=== PATIENT | female | born 1995 | race Caucasian/White ===

== ENCOUNTER 2017-06-14 20:52 | Emergency (ER) | payer BC ==
[~2017-06-14] VITALS: Ht 157.5 cm; Wt 62.0 kg
[~2017-06-14 20:52] MED LIST: CIPR-255 PO
[2017-06-14 20:57] VITALS: TEMP 36.8; Ht 157.5 cm; Wt 62.0 kg
--- NOTE | 2017-06-14 21:56 | DIAGNOSTIC IMAGING REPORT ---
LEFT ANKLE 3 VIEWS CLINICAL HISTORY: Left ankle twisting injury. FINDINGS: 3 views of the left ankle are obtained. No prior studies are available for comparison at the time of dictation. The skeletal structures are well mineralized. No fracture is seen. The ankle mortise is intact. A small joint effusion is identified. Soft tissue edema is present around the ankle, greatest over the lateral malleolus. A small bone island is incidentally noted in the calcaneus. IMPRESSION: Soft tissue swelling and joint effusion with no radiographic evidence of left ankle fracture. Electronically signed by: Sidney Red M.D. 06/14/2017 9:55 PM Dictated Date/Time: 06/14/2017 9:54 PM
[2017-06-14] MEDS ORDERED: CRAN500C2 PO (22:20)
[2017-06-14] MEDS ORDERED: IUD'IUD INT UTER (22:20)
[2017-06-14] MEDS ORDERED: SPIR25TA PO (22:20)
[2017-06-14] MEDS ORDERED: IBUPROFEN 600 MG TAB PO STA (22:25)
[2017-06-14 22:41] VITALS: BP 111/89; PULSE 64; O2SAT 100
--- NOTE | 2017-06-14 23:27 | EMERGENCY ROOM VISIT NOTE ---
History First contact with patient: 21:06 Chief Complaint: ANKLE PAIN Stated Complaint: L ANKLE PAIN,SWELLING AND PAIN History of Present Illness The patient is a 21 year old female who presents to the Emergency Room with complaints of left ankle injury tonight. The patient reports stepping off of a curb and twisting her ankle. She denies any pain extending into the foot or leg. She denies paresthesias or numbness of the left foot or toes, and rates her discomfort a 6 out of 10 with ambulation. The patient denies any prior history of left ankle injuries. Review of Systems 10 system review was performed and was negative except for pertinent positives and negatives as indicated in history of present illness Past Medical/Surgical History Medical Problems: (1) UTI (urinary tract infection) Family History Patient reports no known family medical history. Social History Smoking Status: Never Smoker Marital Status: single Housing Status: lives with roommate Occupation Status: [employer] student Current/Historical Medications Scheduled Cranberry (Vaccinium Macrocarp (Cranberry), 500 MG PO DAILY Iud's (Paragard Intrauterine Displayer), 1 EA INT UTER UD Spironolactone (Aldactone), 25 MG PO DAILY Physical Exam Vital Signs Date Time Temp Pulse Resp B/P (MAP) Pulse Ox O2 Delivery O2 Flow Rate FiO2 06/14/17 22:41 64 111/89 100 06/14/17 20:57 36.8 79 18 112/81 97 Room Air Physical Exam CONSTITUTIONAL: Healthy and well nourished. Alert and oriented X 3 with positive affect. Patient does not appear in any acute distress. HEENT: Normocephalic, atraumatic. Pupils equal, round and reactive. NECK: Full active range of motion without discomfort. MUSCULOSKELETAL: Examination of the left ankle shows mild lateral edema. No open wounds or ecchymosis noted. The patient has no tenderness of the deltoid ligament, and negative anterior draw test. No focal tenderness to palpation of the dorsal midfoot, metatarsals, phalanges, calcaneus, Achilles tendon or proximal leg. Pedal pulses are intact. INTEGUMENTARY: No rash or other significant dermatologic conditions noted. NEUROLOGIC: Left foot and toes are sensory intact. Medical Decision & Procedures ER Provider Diagnostic Interpretation: My interpretation of left ankle x-rays does not show any acute fractures, dislocation or ankle mortise asymmetry. Radiologist report is as follows: LEFT ANKLE 3 VIEWS CLINICAL HISTORY: Left ankle twisting injury. FINDINGS: 3 views of the left ankle are obtained. No prior studies are available for comparison at the time of dictation. The skeletal structures are well mineralized. No fracture is seen. The ankle mortise is intact. A small joint effusion is identified. Soft tissue edema is present around the ankle, greatest over the lateral malleolus. A small bone island is incidentally noted in the calcaneus. IMPRESSION: Soft tissue swelling and joint effusion with no radiographic evidence of left ankle fracture. Medications Administered Medications (Trade) Dose Ordered Sig/Karolina Route Start Time Stop Time Status Last Admin Dose Admin Ibuprofen (Motrin Tab) 600 mg NOW STAT PO 06/14/17 22:25 06/14/17 22:26 DC 06/14/17 22:34 600 MG ED Course Patient history and physical exam were performed. Nurse's notes were reviewed. Vital signs were reviewed and were normal. The patient refused any analgesics on initial exam. X-rays of the left ankle were normal. The patient was provided additional verbal and written ankle sprain instructions. The patient was also dispensed crutches to avoid limping. The patient was encouraged to alternate ibuprofen and Tylenol as needed for additional pain relief. Follow-up with orthopedics if symptoms are not improving within the next week. The patient was happy with plan of care, voiced understanding of all discharge instructions, and rated her pain a 3 out of 10 at the time of discharge. Medical Decision Medication Reconcilliation Current Medication List: was personally reviewed by me Blood Pressure Screening Patient's blood pressure: Normal blood pressure Impression Primary Impression: Left ankle sprain Departure Information Referrals [facility] (PCP) Patient Instructions [facility]
== END 2017-06-14 22:42 | disposition home or self-care (01) ==
LOC: C.EDB 20:54 → C.EDD 22:42
DX: S93.402A Sprain of unspecified ligament of left ankle, initial encounter (principal); X58.XXXA Exposure to other specified factors, initial encounter; Z87.440 Personal history of urinary (tract) infections; Z79.899 Other long term (current) drug therapy

== ENCOUNTER → 2017-09-21 | Outpatient (CLI) | payer BC ==
[~2017-09-21] MED LIST changes: -CIPR-255 PO; +CRAN500C2 PO; +IUD'IUD INT UTER; +SPIR25TA PO
--- NOTE | 2017-09-21 10:12 | DIAGNOSTIC IMAGING REPORT ---
(RENAL)RETROPERITON COMP HISTORY: Infection N39.0 Recurrent [id number] COMPARISON: None. FINDINGS: Right kidney: Maximum dimension 11.0 cm. No evidence for hydronephrosis. Normal corticomedullary differentiation and cortical thickness. Left kidney: Maximum dimension 10.7 cm. No evidence for hydronephrosis. Normal corticomedullary differentiation and cortical thickness. Bladder: No bladder wall thickening. The bilateral ureteral jets were identified. IMPRESSION: Normal renal ultrasound. The above report was generated using voice recognition software. It may contain grammatical, syntax or spelling errors. Electronically signed by: Rohith Lopez M.D. 09/21/2017 10:11 AM Dictated Date/Time: 09/21/2017 10:09 AM
== END | disposition home or self-care (01) ==
LOC: C.ULTR 09:31 → MERGE 10:00
PROVIDERS: ATTEND Urology
DX: N39.0 Urinary tract infection, site not specified (principal)